=== PATIENT | male | born 1950 | race Caucasian/White ===

== ENCOUNTER 2016-08-23 14:06 | Outpatient (RCR) | payer MEDICARE, OTHER ==
[2016-09-15] MEDS ORDERED: HYDR12.56 PO (10:23)
[2016-09-15] MEDS ORDERED: LISI40TA PO (10:23)
[2016-09-15] MEDS ORDERED: PRAV80TA2 PO (10:23)
[2016-09-21] MEDS ORDERED: ACET1TAB43 PO (11:48)
[2016-09-21] MEDS ORDERED: CIPR-226 PO (11:48)
== END 2016-10-13 | disposition home or self-care (01) ==
LOC: ONC 14:06
PROVIDERS: ATTEND Radiology Radiation Oncology
DX: C61 Malignant neoplasm of prostate (principal)
CPT/HCPCS: 76873; 99214

== ENCOUNTER 2016-09-15 10:07 | Outpatient (CLI) | payer MEDICARE, OTHER ==
[~2016-09-15] VITALS: Ht 177.8 cm; Wt 103.5 kg
[2016-09-15 10:18] VITALS: BP 142/97
[2016-09-15] MEDS ORDERED: PRAV80TA2 PO (10:23)
[2016-09-15] MEDS ORDERED: LISI40TA PO (10:23)
[2016-09-15] MEDS ORDERED: HYDR12.56 PO (10:23)
[2016-09-15 11:07] LABS: BILIRUBIN,URINE NEGATIVE (NEGATIVE); KETONES,URINE NEGATIVE (NEGATIVE); LEUKOCYTE ESTERASE ,URINE NEGATIVE (NEGATIVE); NITRITE,URINE NEGATIVE (NEGATIVE); PH,URINE 7 (5-9); PROTEIN,URINE NEGATIVE (NEGATIVE); UROBILINOGEN,URINE NORMAL (NORMAL)
[2016-09-15 11:22] LABS: SQUAMOUS EPITHELIAL CELL,UR RARE /HPF; WBC,URINE RARE /HPF
--- NOTE | 2016-09-15 13:21 | Diagnostic Imaging Report ---
INDICATION: Preop for brachytherapy. PA and lateral chest obtained at 10:50 a.m. FINDINGS: Heart and mediastinal silhouette are normal in appearance. The lungs are clear. There is no pneumothorax or pleural fluid collection. IMPRESSION: Negative chest. Dictated by: Dictated on workstation # [id number]
== END 2016-09-15 10:45 | disposition home or self-care (01) ==
LOC: PREOP 10:07
PROVIDERS: ATTEND Radiology Radiation Oncology
DX: Z01.818 Encounter for other preprocedural examination (principal); C61 Malignant neoplasm of prostate
CPT/HCPCS: 71020; 81000; 87081

== ENCOUNTER 2016-09-21 10:40 | Day surgery (SDC) | payer MEDICARE, OTHER ==
[~2016-09-21] VITALS: Ht 177.8 cm; Wt 103.5 kg
[~2016-09-21 10:40] MED LIST: HYDR12.56 PO; LISI40TA PO; PRAV80TA2 PO
--- OUTSIDE RECORDS SUMMARY | 2016-09-21 10:49 | XMS REPORT | Continuity of Care Document ---
Author Author [facility] Organization [facility] Address Unknown Phone Unavailable Care Team Providers Care Rib Builder Name Role Phone EMORY CURRY MD PCP Insurance Providers Payer Name Policy Number Subscriber Name Relationship W[employer] Medicare [id number] Eloy Ramirez 18 Self / Same As Patient [employer] [id number] Eloy Ramirez 18 Self / Same As Patient Advance Directives Directive Response Recorded Date/Time Advance Directives Yes 09/15/16 10:19am Health Care Power of Seafood Fisherman Y Sole 09/15/16 10:19am Organ Donor No 09/15/16 10:19am Resuscitation Status Full Code 09/15/16 10:19am Problems No problem information available. Medications Current Home Medications Medication Dose Units Route Directions Days/Qty Instructions Start Date Hydrochlorothiazide 12.5 Mg 12.5 Mg Oral Daily 09/15/16 Pravastatin Sodium 80 Mg 80 Mg Oral Bedtime 09/15/16 Lisinopril 40 Mg 40 Mg Oral Daily 09/15/16 Social History Social History Problem Response Recorded Date/Time Alcohol Use Rarely Uses 09/15/2016 10:19am Recreational Drug Use No 09/15/2016 10:19am Recent Foreign Travel No 09/15/2016 10:19am Recent Infectious Disease Exposure No 09/15/2016 10:19am Smoking Status Never a Smoker 09/15/2016 10:19am Recent Hopitalizations No 09/15/2016 10:19am Query Response Start Date Stop Date Smoking Status Never a Smoker Hospital Discharge Instructions No hospital discharge instructions. Plan of Care Discharge Date 09/15/16 10:45am Prescriptions See Medication Section Functional Status No functional status results. Allergies, Adverse Reactions, Alerts No known allergies. Immunizations No immunization records. Vital Signs Acute Vital Signs Vital Response Date/Time Pulse Rate (adult) 68 bpm (60 - 90) 09/15/2016 10:18am O2 Sat by Pulse Oximetry 93 % (88 - 100) 09/15/2016 10:18am Blood Pressure 142/97 mm Hg 09/15/2016 10:18am Blood Pressure Mean 112 mm Hg 09/15/2016 10:18am Pain Numeric Pain Scale 0-No Pain 09/15/2016 10:18am Height (Feet) 5 feet 09/15/2016 10:19am Height (Inches) 10.00 inches 09/15/2016 10:19am Height (Calculated Centimeters) 177.861065 cm 09/15/2016 10:19am Weight (Pounds) 228 pounds 09/15/2016 10:19am Weight (Ounces) 4.0 oz 09/15/2016 10:19am Weight (Calculated Grams) 140279.46 gm 09/15/2016 10:19am Weight (Calculated Kilograms) 103.183370 kilograms 09/15/2016 10:19am Calculated BMI 32.8 09/15/2016 10:19am Results No known relevant diagnostic tests, laboratory data and/or discharge summary. Procedures No known history of procedures. Encounters Encounter Location Arrival/Admit Date Discharge/Depart Date Attending Provider Departed Clinic [facility] 09/15/16 10:07am 09/15/16 10: 45am JOSEPHINE LOPEZ MD Registered Recurring [facility] 08/23/16 2:06pm JOSEPHINE LOPEZ MD
--- OUTSIDE RECORDS SUMMARY | 2016-09-21 10:50 | XMS REPORT | Continuity of Care Document ---
Author Author [facility] Organization [facility] Address Unknown Phone Unavailable Care Team Providers Care Decision Analyst Name Role Phone EMORY CURRY MD PCP Insurance Providers Payer Name Policy Number Subscriber Name Relationship [employer] [id number] Eloy Ramirez 18 Self / Same As Patient [employer] [id number] Eloy Ramirez 18 Self / Same As Patient Advance Directives Directive Response Recorded Date/Time Advance Directives Yes 09/15/16 10:19am Health Care Power of Robotics Technologist Y Sole 09/15/16 10:19am Organ Donor No [...] 10.00 inches 09/15/2016 10:19am Height (Calculated Centimeters) 177.456334 cm 09/15/2016 10:19am Weight (Pounds) 228 pounds 09/15/2016 10:19am Weight (Ounces) 4.0 oz 09/15/2016 10:19am Weight (Calculated Grams) 063383.46 gm 09/15/2016 10:19am Weight (Calculated Kilograms) 103.183305 kilograms 09/15/2016 10:19am Calculated BMI 32.8 09/15/2016 10:19am Results No known relevant diagnostic tests, laboratory data and/or discharge summary. Procedures No known history of procedures. Encounters Encounter Location Arrival/Admit Date Discharge/Depart Date Attending Provider Departed Clinic [facility] 09/15/16 10:07am 09/15/16 10: 45am JOSEPHINE LOPEZ MD Registered Recurring [facility] 08/23/16 2:06pm JOSEPHINE LOPEZ MD
[2016-09-21] MEDS ORDERED: LEVOFLOXACIN 500 MG/D5W 100 ML (PRE-MIX) IV ONE (11:00)
[2016-09-21 11:25] VITALS: BP 132/94
--- NOTE | 2016-09-21 11:40 | Progress Note-Pre Operative ---
Pre-Operative Progress Note H&P Reviewed The H&P was reviewed, patient examined and no changes noted. Date H&P Reviewed: Sep 21, 2016 Time H&P Reviewed: 11:39 Pre-Operative Diagnosis: Prostate cancer cT2b, PSA 12.2, [place] 7 (4+3) JOSEPHINE LOPEZ MD Sep 21, 2016 11:40
--- NOTE | 2016-09-21 11:46 | Discharge Inst-Simple/Standard ---
Discharge Inst-Standard Discharge Medications New, Converted or Re-Newed RX: RX Given to Pt/Family Patient Instructions/Follow Up Plan of Care/Instructions/FU: 1) Keep follow up appointment as scheduled with Dr. Mims in [place]. 2) One month post implant scan at [facility] 10/19/16 at 10:00 a.m. Activity as Tolerated: Yes Discharge Diet: No Restrictions Other Inst to Patient May remove allen catheter Monday morning. If unable to void contact Dr. Mims' s office. JOSEPHINE LOPEZ MD Sep 21, 2016 11:46
[2016-09-21] MEDS ORDERED: ACET1TAB43 PO (11:48)
[2016-09-21] MEDS ORDERED: CIPR-226 PO (11:48)
[2016-09-21] MEDS ORDERED: LACTATED RINGERS 1,000 ML IV PRN (12:00)
[2016-09-21] MEDS ORDERED: MUPIROCIN 2% OINT 22 GM (BACTROBAN) TUBE ONE (12:27)
[2016-09-21] MEDS ORDERED: proPOfol 200 MG/20 ML (DIPRIVAN) VIAL IV ONE (12:30)
[2016-09-21] MEDS ORDERED: LIDOCAINE PF 2% 10 ML (XYLOCAINE) AMP ONE (12:30)
[2016-09-21] MEDS ORDERED: MIDAZOLAM 2 MG/2 ML (VERSED) VIAL ONE (12:31)
[2016-09-21] MEDS ORDERED: fentaNYL INJECTION 100 MCG/2 ML AMP ONE ×2 (12:31→14:22)
[2016-09-21] MEDS ORDERED: SEVOFLURANE (ULTANE) 15 ML INHAL SOLN ONE (14:22)
[2016-09-21] MEDS ORDERED: LACTATED RINGERS 2,000 ML IV ONE (14:33)
[2016-09-21] MEDS ORDERED: ONDANSETRON 4 MG/2 ML (SDV) Z0FRAN ONE (14:33)
[2016-09-21] MEDS ORDERED: KETOROLAC 30 MG/ML VIAL ONE (14:33)
[2016-09-21] MEDS ORDERED: fentaNYL INJECTION 250 MCG/5 ML AMP IV PRN (14:45)
[2016-09-21] MEDS ORDERED: PROMETHAZINE INJ 25 MG/ML (PHENERGAN) AMP IV PRN (14:45)
[2016-09-21] MEDS ORDERED: ONDANSETRON 4 MG/2 ML (SDV) Z0FRAN IV PRN (14:45)
[2016-09-21] MEDS ORDERED: HYDROmorphone (DILAUDID) 2 MG/ML VIAL IV PRN (14:45)
[2016-09-21] MEDS ORDERED: MEPERIDINE (DEMEROL) INJ 50 MG/ML IV PRN (14:45)
[2016-09-21] MEDS ORDERED: morphine INJ 10 MG/ML 1ML (SYR OR VIAL) IV PRN (14:45)
--- NOTE | 2016-09-21 14:59 | Progress Note-Post Operative ---
Post-Operative Progess Note Plant Physiologist Woo Mims M.D. Pre-Operative Diagnosis Prostate cancer cT2b, PSA 12.2, [place] 7 (4+3) Post-Operative Diagnosis Same as pre-op Post-Op Procedure Note Date of Procedure: Sep 21, 2016 Name of Procedure: 1) 85 Gy Cesium 131 Prostate Permanent Implant 2) Insertion of Biodegradable Hydrogel into the prostate-rectal space utilizing the [employer] system (Dr. Mims) Procedure Note/Findings Prostate volume 30 cc Anesthesia Type General Estimated blood loss (mL): Minimal Packing: None Specimen(s) collected None JOSEPHINE LOPEZ MD Sep 21, 2016 14:59
[2016-09-21 15:25] VITALS: BP 108/68
[2016-09-21 15:55] VITALS: BP 117/65
[2016-09-21 16:20] VITALS: BP 122/66
[2016-09-21 16:55] VITALS: BP 122/66
--- NOTE | 2016-09-21 19:07 | Diagnostic Imaging Report ---
EXAMINATION: AP view of the pelvis. INDICATION: Fluoroscopic guidance for brachytherapy. FLUOROSCOPY TIME: 10 seconds of fluoroscopy guidance was provided. CONTRAST: 10 cc of Omnipaque 300 was administered. IMPRESSION: Provided image demonstrates a Chow catheter in the bladder which is opacified with contrast. There are fiducial markers implanted in the prostate. Dictated by: Dictated on workstation # [id number]
== END 2016-09-21 16:55 | disposition home or self-care (01) ==
LOC: SDC 10:40
PROVIDERS: ATTEND Radiology Radiation Oncology
DX: C61 Malignant neoplasm of prostate (principal); E78.00 Pure hypercholesterolemia, unspecified; I10 Essential (primary) hypertension; Z87.891 Personal history of nicotine dependence; Z79.899 Other long term (current) drug therapy; Z80.42 Family history of malignant neoplasm of prostate; E66.9 Obesity, unspecified; M19.90 Unspecified osteoarthritis, unspecified site; Z68.32 Body mass index [BMI] 32.0-32.9, adult
CPT/HCPCS: 0438T; 55875; 76965; 77290; 77318; 77332; 77336; 77470; 77778; 77790

== ENCOUNTER → 2016-11-08 | Outpatient (CLI) | payer MEDICARE, OTHER ==
[~2016-11-08] MED LIST changes: +ACET1TAB43 PO; +CIPR-226 PO; +GADOBUTROL 10 MMOL/10 ML (GADAVIST) VIAL IV ONE
--- NOTE | 2016-11-08 16:01 | Diagnostic Imaging Report ---
PROCEDURE: MRI pelvis with and without contrast. TECHNIQUE: Multiplanar, multisequence MRI of the pelvis was performed with and without contrast. INDICATION: Prostate cancer. 10 mL of Gadovist is administered intravenously. FINDINGS: There are a number of low-intensity linear signal areas in the prostate probably related to fiducial markers. The prostate is 4.3 x 4.8 x 3.5 cm. The prostate cancer itself is not visible on this exam. There is no evidence of mass extension from the prostate into the seminal vesicles or the adjacent neurovascular bundle along the posterolateral aspect of the prostate on both sides. There is a hydrogel material that separates of the posterior wall of the prostate from the rectum. The distance between the anterior rectal wall and the posterior margin of the prostate inferiorly is 8 mm and the distance between the superior margin of the posterior aspect of the seminal vesicles and anterior rectal wall is 1.5 cm. There is no evidence of mass invasion into the pelvic floor. The perirectal fat appears normal. The urinary bladder also appears intact. There is no evidence of lymphadenopathy in the pelvis. IMPRESSION: Prostate cancer itself is not seen. There is hydrogel separation between the posterior margin of the prostate and the anterior rectal wall. No lymphadenopathy or mass extension outside the prostate identified on this exam. Dictated by: Dictated on workstation # [id number]
== END ==
LOC: RAD 11:26
PROVIDERS: ATTEND Radiology Radiation Oncology
DX: C61 Malignant neoplasm of prostate (principal)
CPT/HCPCS: 72197

== ENCOUNTER 2016-12-20 08:51 | Outpatient (RCR) | payer MEDICARE, OTHER ==
--- OUTSIDE RECORDS SUMMARY | 2016-10-19 09:56 | XMS REPORT | Continuity of Care Document ---
Author Author [facility] Organization [facility] Address Unknown Phone Unavailable Care Team Providers Care Rn Clinical Appeals Name Role Phone EMORY CURRY MD PCP Insurance Providers Payer Name Policy Number Subscriber Name Relationship W[employer] Medicare [id number] Eloy Ramirez 18 Self / Same As Patient [employer]NA [id number] Eloy Ramirez 18 Self / Same As Patient Advance Directives Directive Response Recorded Date/Time Advance Directives Yes 09/15/16 10:19am Health Care Power of Bleach Liquor Maker Y Sole 09/15/16 10:19am Organ Donor No [...] 10.00 inches 09/15/2016 10:19am Height (Calculated Centimeters) 177.030703 cm 09/15/2016 10:19am Weight (Pounds) 228 pounds 09/15/2016 10:19am Weight (Ounces) 4.0 oz 09/15/2016 10:19am Weight (Calculated Grams) 510721.46 gm 09/15/2016 10:19am Weight (Calculated Kilograms) 103.215314 kilograms 09/15/2016 10:19am Calculated BMI 32.8 09/15/2016 10:19am Results No known relevant diagnostic tests, laboratory data and/or discharge summary. Procedures No known history of procedures. Encounters Encounter Location Arrival/Admit Date Discharge/Depart Date Attending Provider Departed Clinic [facility] 09/15/16 10:07am 09/15/16 10: 45am JOSEPHINE LOPEZ MD Registered Recurring [facility] 08/23/16 2:06pm JOSEPHINE LOPEZ MD
[2016-11-08 11:03] LABS: CREATININE SERUM 1.02 MG/DL (0.60-1.30)
[~2016-12-20 08:51] MED LIST changes: -GADOBUTROL 10 MMOL/10 ML (GADAVIST) VIAL IV ONE
== END 2017-01-17 | disposition home or self-care (01) ==
LOC: ONC 08:51
PROVIDERS: ATTEND Radiology Radiation Oncology
DX: Z51.0 Encounter for antineoplastic radiation therapy (principal); C61 Malignant neoplasm of prostate
CPT/HCPCS: 36415; 77290; 77301; 77331; 77334; 77336; 77338; 77385; 82565; 84520

== ENCOUNTER 2017-01-24 14:09 | Outpatient (RCR) | payer MEDICARE, OTHER | END 2017-04-24 | disposition home or self-care (01) | LOC: ONC 14:09 | PROVIDERS: ATTEND Radiology Radiation Oncology | DX: C61 Malignant neoplasm of prostate (principal) | CPT/HCPCS: 36415; 84153; 99213 ==

== ENCOUNTER → 2017-07-25 | Outpatient (CLI) | payer MEDICARE, OTHER | LOC: EDSTATUS 04-25 13:55 → ONC 13:56 | PROVIDERS: ATTEND Radiology Radiation Oncology | DX: C61 Malignant neoplasm of prostate (principal) | CPT/HCPCS: 36415; 84153; 99213 ==

== ENCOUNTER → 2018-01-30 | Outpatient (CLI) | payer MEDICARE, OTHER | LOC: ONC 14:19 | PROVIDERS: ATTEND Radiology Radiation Oncology | DX: C61 Malignant neoplasm of prostate (principal) | CPT/HCPCS: 99213 ==

== ENCOUNTER → 2018-07-31 | Outpatient (CLI) | payer MEDICARE, OTHER | LOC: ONC 14:38 | PROVIDERS: ATTEND Radiology Radiation Oncology | DX: Z85.46 Personal history of malignant neoplasm of prostate (principal) | CPT/HCPCS: 84153; 99213 ==

== ENCOUNTER → 2019-01-29 | Outpatient (CLI) | payer MEDICARE, OTHER | LOC: ONC 13:37 | PROVIDERS: ATTEND Radiology Radiation Oncology | DX: Z85.46 Personal history of malignant neoplasm of prostate (principal) ==

== ENCOUNTER → 2019-07-30 | Outpatient (CLI) | payer MEDICARE, OTHER | LOC: ONC 14:18 | PROVIDERS: ATTEND Radiology Radiation Oncology | DX: Z85.46 Personal history of malignant neoplasm of prostate (principal) | CPT/HCPCS: 84153 ==

== ENCOUNTER → 2020-01-29 | Outpatient (CLI) | payer MEDICARE, OTHER | LOC: ONC 13:41 | PROVIDERS: ATTEND Radiology Radiation Oncology | DX: C61 Malignant neoplasm of prostate (principal) | CPT/HCPCS: 84153 ==

== ENCOUNTER → 2020-08-17 | Outpatient (CLI) | payer MEDICARE ==
[~2020-08-17] MED LIST changes: -LISI40TA PO; +LISI40TA9 PO
== END ==
LOC: ONC 09:08
PROVIDERS: ATTEND Radiology Radiation Oncology
DX: C61 Malignant neoplasm of prostate (principal)
CPT/HCPCS: 84153

== ENCOUNTER → 2020-08-27 | Outpatient (CLI) | payer MEDICARE ==
[~2020-08-27] MED LIST changes: +LISI40TA PO; -LISI40TA9 PO
== END ==
LOC: ONC 15:22
PROVIDERS: ATTEND Radiology Radiation Oncology
DX: C61 Malignant neoplasm of prostate (principal)
CPT/HCPCS: 99213

== ENCOUNTER → 2021-03-18 | Outpatient (CLI) | payer MEDICARE ==
[~2021-03-18] MED LIST changes: -LISI40TA PO; +LISI40TA9 PO
== END ==
LOC: ONC 09:17
PROVIDERS: ATTEND Radiology Radiation Oncology
DX: C61 Malignant neoplasm of prostate (principal)
CPT/HCPCS: 84153; G0463; 99213